=== PATIENT | male | born 1950 | race Caucasian/White ===

== ENCOUNTER → 2017-01-07 | Day surgery (SDC) | payer OTHER ==
[~2017-01-07] VITALS: Ht 182.9 cm; Wt 71.8 kg
[~2017-01-07] MED LIST: ACETAMINOPHEN 1000 MG/100 ML VIAL IV ONE; ACETAMINOPHEN/HYDROcodone 325 MG/5 MG TAB PO PRN; ALLO300T2 PO; ASPI81CH CHEW; BUPIVACAINE/EPINEPHRINE 0.5% PF 30 ML VIAL ONE; CARV3.125 PO; CEPH-460 PO; CHLORHEXIDINE GLUCONATE 2 % 1 PACK (2 CLOTHS) TOPICAL PRN; CHOL4POW4 PO; CIPR-9 PO; FOLI1TAB4 PO; FOLI1TAB6 PO; GABA300C5 PO; GELFOAM SIZE 100 ONE; HEPARIN SODIUM - IV 10,000 UNITS/10 ML VIAL ONE; HEPARIN SODIUM - SQ 10,000 UNITS/ML VIAL ONE; INSULIN HUMAN REGULAR 1,000 UNITS/10 ML VIAL SQ PRN; KETAMINE HCL 500 MG/5 ML VIAL ONE; LACTATED RINGER'S 1000 ML INJ 1,000 ML IV SCH; LOVA20TA PO; MAGNESIUM SULFATE 1 GM/100 ML IV PRN; METOPROLOL TARTRATE 25 MG TAB PO PRN; MIDAZOLAM HCL 2 MG/2 ML VIAL ONE; MIRT30TA PO; MORPHINE SULFATE 4 MG/ML INJ IV PRN; MULTTAB67 PO; ONDANSETRON HCL 4 MG/2 ML VIAL IV PUSH ONE; ONDANSETRON HCL 4 MG/2 ML VIAL IV PUSH PRN; PHENYLEPH/NS 1000 MCG/10 ML SYR IV ONE; POTASSIUM CHLOR 20 MEQ 100 ML x 2 BAGS IV PRN; POTASSIUM CHLOR 20 MEQ/100 ML x 1 BAG IV PRN; POTASSIUM PHOSPHATE 21 MMOL/NS 250 ML IV PRN; POVIDONE IODINE 5% (ANTISEPSIS KIT) 4 APPLICATIONS EACH NARE PRN; PRED20 PO; PROPOFOL 200 MG/20 ML AMP IV ONE; PROT40TA PO; PROTAMINE SULFATE 50 MG/5 ML VIAL ONE; SEVE800T PO; SODIUM CHLORID 0.9% 500 ML IV PRN; SODIUM CHLORIDE 0.9% FLUSH 10 ML FLUSH IV FLUSH PRN; SUCR1TAB PO; THIA100T PO; THROMBIN (TOPICAL) 5,000 UNIT VIAL ONE; VANCOMYCIN HCL 1000 MG VIAL ONE; VITA100T54 PO; WARF5TAB PO; ePHEDrine/NS 25 MG/5 ML SYR IV ONE; fentaNYL CITRATE 250 MCG/5 ML AMP ONE
--- NOTE | 2017-01-07 06:44 | RADRPT ---
EXAM DATE/TIME: 01/07/2017 06:23 [facility] COMPARISON: No previous studies available for comparison. INDICATIONS : Evaluate for pneumonia, pneumothorax, and communicable disease. Pre op for vascular surgery. MEDICAL HISTORY : None. SURGICAL HISTORY : Pacemaker. CABG. ENCOUNTER: Initial ACUITY: 1 day PAIN SCORE: 0/10 LOCATION: Bilateral chest FINDINGS: A single view of the chest demonstrates the lungs to be symmetrically aerated without evidence of mas s, infiltrate or effusion. A calcified granuloma seen within the right lung base. Right-sided dialysi s catheter and left-sided pacing device. Median sternotomy wires. Right axillary surgical clips. The cardiomediastinal contours are unremarkable. Osseous structures are intact. CONCLUSION: No acute disease. Dontrell Odonnell Jr., MD on January 07, 2017 at 6:42 Board Certified Radiologist. This report was verified electronically.
[2017-01-07 07:01] VITALS: BP 107/67; PULSE 95; RESP 20; TEMP 98.2; O2SAT 100
[2017-01-07 07:10] LABS: AUTOMATED NEUTROPHIL # 5.9 TH/MM3 (1.8-7.7); BASOPHIL # 0.1 TH/MM3 (0-0.2); BASOPHIL % 1.2 % (0.0-2.0); EOSINOPHIL # 0.5 TH/MM3 (0-0.4); HEMATOCRIT 34.8 % (39.0-51.0); HEMO FLAGS DIFF FINAL; LYMPH % 19.1 % (9.0-44.0); LYMPHOCYTE # 1.7 TH/MM3 (1.0-4.8); MEAN CELL VOLUME 97.3 FL (80.0-100.0); MEAN CORPUSCULAR HEMOGLOBIN 31.1 PG (27.0-34.0); MONO % 8.6 % (0.0-8.0); NEUT % 65.1 % (16.0-70.0); PLATELET COUNT 326 TH/MM3 (150-450); RED BLOOD COUNT 3.58 MIL/MM3 (4.50-5.90); RED CELL DISTRIBUTION WIDTH 20.4 % (11.6-17.2); WHITE BLOOD COUNT 9.1 TH/MM3 (4.0-11.0)
[2017-01-07 07:22] LABS: PROTHROMBIN TIME - PATIENT 10.7 SEC (9.8-11.6)
[2017-01-07 07:27] LABS: BICARBONATE 27.8 MEQ/L (21.0-32.0); POTASSIUM 4.1 MEQ/L (3.5-5.1)
--- NOTE | 2017-01-07 10:32 | EKG ---
Date Performed: 01/07/2017 Time Performed: 06:46:44 PTAGE: 67 years EKG: ELECTRONIC VENTRICULAR PACEMAKER ABNORMAL RHYTHM ECG NO PREVIOUS TRACING DOCTOR: Catalina Givens Interpretating Date/Time 01/07/2017 10:26:36
[2017-01-07 11:45] VITALS: BP 120/72; PULSE 97; RESP 18; O2SAT 100
--- NOTE | 2017-01-09 10:57 | MP ---
cc: MARTY MARION DATE OF SURGERY 01/07/2017 PREOPERATIVE DIAGNOSIS End-stage renal disease. POSTOPERATIVE DIAGNOSIS End-stage renal disease. PROCEDURE Left upper extremity AV fistula creation, brachial basilic AV fistula. FIRST STAGE SURGEON DO Martínez Chinchilla IV FLUIDS 300 cc of Crystalloid ESTIMATED BLOOD LOSS Less than 50 cc. URINE OUTPUT Not calculated COMPLICATIONS None DISPOSITION To PACU PROCEDURE The patient's left upper extremity was prepped and draped in a sterile fashion after getting one gram of IV Ancef. I made a linear incision over the medial aspect just above his antecubital fossa. It was vertical. This was about 3-4 cm. I used a scalpel and electrocautery. I dissected down through the subcutaneous tissue and divided the bicipital aponeurosis to find the brachial artery. I isolated the brachial artery with sharp dissection. I used multiple small medium clips, as well as 3-0 ties in order to tie off side branches. It should be noted the vessel was very calcified and marbling could be seen throughout the length of it. I then mobilized the basilic vein and tied off side branches with small clips and 3-0 ties as needed. I divided it distally with two medium clips. When I injected the heparinized saline in, it did not dilate the appropriately. I used a bulldog clamp in order to control it so there was no back bleeding and then I give the patient 3000 units of heparin and used two pediatric profunda clamps in order to occlude the brachial artery proximally and distally. I made my arteriotomy with an 11-blade and micro Tucker scissors. I then performed end-to-side anastomosis with a 5-0 Prolene on a BV1. Afterwards there was a good thrill in the outflow of the basilic vein and there were good signals in the radial and ulnar distribution in the hand. They were unchanged with compression of the vein. The patient did have a nice thrill in the vein as well. I did use Surgicel to help out with hemostasis and I closed in layers with an interrupted 2-0 and 3-0 Vicryl absorbable suture and a 4-0 Monocryl with Dermabond over the skin. I just used a loosely wrapped Kerlix dressing at the end of the case. DO RODERICK Chinchilla/DJL /10:23 AM /10:51 AM
== END | disposition home or self-care (01) ==
LOC: HCVO 06:04
PROVIDERS: ATTEND Surgery
DX: N18.6 End stage renal disease (principal); I12.0 Hypertensive chronic kidney disease with stage 5 chronic kidney disease or end stage renal disease; Z95.1 Presence of aortocoronary bypass graft; Z95.0 Presence of cardiac pacemaker
CPT/HCPCS: 01844; 36819; 71010; 76937; 80048; 85025; 85610; 85730; 86077; 86850; 86870; 86880; 86900; 86901; 86920; 86922; 93005; J0131; J1644; J2250; J2370; J2405; J2720; J3010; J3370; J7040

== ENCOUNTER → 2017-03-24 | Day surgery (SDC) | payer OTHER ==
[~2017-03-24] VITALS: Ht 182.9 cm; Wt 79.1 kg
[~2017-03-24] MED LIST changes: -ACETAMINOPHEN 1000 MG/100 ML VIAL IV ONE; -ACETAMINOPHEN/HYDROcodone 325 MG/5 MG TAB PO PRN; +BUPIVACAINE/EPINEPHRINE 0.5% 50 ML VIAL ONE; -BUPIVACAINE/EPINEPHRINE 0.5% PF 30 ML VIAL ONE; -CARV3.125 PO; +DO NOT ADM ANY ANTICOAGULANT DRUGS PRN; +FAMOTIDINE 20 MG/2 ML VIAL ONE; -FOLI1TAB4 PO; -HEPARIN SODIUM - SQ 10,000 UNITS/ML VIAL ONE; -KETAMINE HCL 500 MG/5 ML VIAL ONE; -LACTATED RINGER'S 1000 ML INJ 1,000 ML IV SCH; +LACTATED RINGER'S 1000 ML IV PRN; -LOVA20TA PO; -MAGNESIUM SULFATE 1 GM/100 ML IV PRN; -MORPHINE SULFATE 4 MG/ML INJ IV PRN; +MORPHINE SULFATE 4 MG/ML INJ IV PUSH PRN; -ONDANSETRON HCL 4 MG/2 ML VIAL IV PUSH ONE; -ONDANSETRON HCL 4 MG/2 ML VIAL IV PUSH PRN; -POTASSIUM CHLOR 20 MEQ 100 ML x 2 BAGS IV PRN; -POTASSIUM CHLOR 20 MEQ/100 ML x 1 BAG IV PRN; -POTASSIUM PHOSPHATE 21 MMOL/NS 250 ML IV PRN; -PRED20 PO; +SODIUM CHLOR 0.9% 250 ML INJ 250 ML IV ONE; +SODIUM CHLORID 0.9% 500 ML INJ 500 ML IV ONE; -SODIUM CHLORIDE 0.9% FLUSH 10 ML FLUSH IV FLUSH PRN; -THIA100T PO; -WARF5TAB PO; -ePHEDrine/NS 25 MG/5 ML SYR IV ONE; -fentaNYL CITRATE 250 MCG/5 ML AMP ONE; +oxyCODONE/ACETAMINOPHEN 5 MG/325 MG TAB PO PRN
[2017-03-24 09:40] VITALS: BP 143/76; PULSE 73; RESP 18; TEMP 98.1; O2SAT 98
--- NOTE | 2017-03-24 09:57 | RADRPT ---
EXAM DATE/TIME: 03/24/2017 09:15 [facility] COMPARISON: CHEST SINGLE AP, January 07, 2017, 6:23. INDICATIONS : Evaluate for pneumothorax, pneumonia and communicable diseases. Pre-op for port placement. MEDICAL HISTORY : None. SURGICAL HISTORY : Pacemaker. CABG. vascath. ENCOUNTER: Initial ACUITY: 1 day PAIN SCORE: 0/10 LOCATION: Bilateral chest FINDINGS: The patient is post median sternotomy. The heart is normal in size. The lungs demonstrate a calcified 6 mm granuloma in the right lung base but are otherwise clear. There are multiple surgical clips in the right axilla. There is a dialysis catheter in good position. There is a transvenous pacer present. CONCLUSION: 1. Transvenous pacer on the left and dialysis catheter on the right. Patient is post median sternotom y. The lungs are otherwise clear. Jacobo Garrett MD on March 24, 2017 at 9:54 Board Certified Radiologist. This report was verified electronically.
[2017-03-24 15:40] VITALS: BP 162/74; PULSE 72; RESP 16; TEMP 97.4; O2SAT 100
--- NOTE | 2017-03-25 10:08 | MP ---
cc: MARTY MARION DATE OF SURGERY 03/24/2017 PREOPERATIVE DIAGNOSES 1. End-stage renal disease. 2. History of left upper extremity brachiobasilic A-V fistula. Post op Diagnosis Same as above. Surgery Left upper extremity basilic vein transposition. SURGEON Dr. Marion SINTER PRESS OPERATOR Danny Varghese ANESTHESIA LMA general and approximately 20 cc of 0.5% Marcaine with epinephrine. ESTIMATED BLOOD LOSS Less than 50 cc. IV FLUIDS 300 cc. URINE OUTPUT Not calculated. COMPLICATIONS None. DISPOSITION To PACU. PROCEDURE The patient's left upper extremity was prepped and draped in a sterile fashion after being under LMA anesthesia. The patient with history of having multiple central venous lines, was given IV vancomycin. I made an incision over the medial aspect of his left upper extremity with a scalpel and electrocautery. I dissected down to the basilic vein and was able to mobilize the vessel with side branches off with 3-0 silks and medium and small clips as needed. It should be noted that a portion the basilic nerve was divided and I was able to transpose the vessel more towards the biceps without tunneling it. It should be noted that I closed the deep tissue with interrupted 2-0 and 3-0 Vicryl absorbable sutures and then mobilized the skin flap more on the biceps side and was able to approximate the skin edges without tension with a running 4-0 Monocryl stitch. I did use a piece of Surgicel on the base and then Dermabond over the skin. There was a good thrill at the end of the procedure and the basilic vein looked appropriate with a good pulsation. The patient tolerated the procedure well and was taken to the PACU at the end of the case. DO RODERICK Chinchilla/RAMESH /2:15 PM /10:06 AM [facility]
== END | disposition home or self-care (01) ==
LOC: HSDC 08:34
PROVIDERS: ATTEND Surgery
DX: N18.6 End stage renal disease (principal); Z95.1 Presence of aortocoronary bypass graft; Z95.0 Presence of cardiac pacemaker; Z01.818 Encounter for other preprocedural examination
CPT/HCPCS: 01844; 36819; 71010; 76937; 84132; 86850; 86900; 86901; 86920; 86922; J1644; J2250; J2370; J3010; J3370; J7040; J7050; J2720